=== PATIENT | female | born 1965 | race Caucasian/White ===

== ENCOUNTER 2021-08-29 09:48 | Emergency (ER) | payer OTHER, SELFPAY ==
[2021-08-29 09:54] VITALS: BP 127/77; PULSE 65; RESP 14; TEMP 36.5; O2SAT 99
--- NOTE | 2021-08-29 10:24 | ED.URI ---
HPI - URI/Sore Throat General Chief Complaint: Upper Respiratory Infection Stated Complaint: sinus issues Time Seen by Provider: 08/29/21 10:25 Source: patient and family Mode of arrival: ambulatory History of Present Illness HPI Narrative: Patient presents with a 2-day history of sinus congestion and occasional cough. No shortness of breath and no chest pain. Patient states she does have Flonase at home but does not use it on a routine basis. - Related Data Allergies Allergy/AdvReac Type Severity Reaction Status Date / Time No Known Allergies Allergy Verified 08/29/21 09:59 Review of Systems Review of Systems: CONSTITUTIONAL: Denies chills, or sweats. Reports fever and generalized body aches EYES: Denies visual changes, redness, or discharge. ENT: Denies otalgia. Reports nasal congestion runny nose and sore throat CARDIOVASCULAR: Denies chest pain, palpitations, or edema. RESPIRATORY: Denies dyspnea. Reports occasional cough GASTROINTESTINAL: Denies abdominal pain, nausea, vomiting, or diarrhea. GENITOURINARY: Denies dysuria or hematuria. SKIN: Denies rash or itching. MUSCULOSKELETAL: Denies back pain, joint pain, or myalgia. Reports generalized body aches NEUROLOGIC: Denies headache, numbness, or weakness. PSYCHIATRIC: Denies anxiety or depression. Allergic/Immunologic: Comments: At time of signature, agree with nursing past medical, surgical, social and family history. There is no relevant family history pertinent to the presenting complaint [facility] Past Medical History Medical History (Updated 08/29/21 @ 10:33 by JONATHAN Lira) Anemia Osteoarthritis Surgical History Surgical History (Updated 08/21/19 @ 16:27 by Cuca Torres NP) Gastric bypass status for obesity H/O tubal ligation History of tonsillectomy and adenoidectomy Social History Social History (Updated 08/21/19 @ 16:27 by Cuca Torres NP) Smoking status: Never smoker Gender identity (if verbalized by the patient): Female Exam Narrative: The patient is a well-developed, well-nourished in no acute distress. SKIN: Skin is warm and dry without erythema, swelling or exudate. There is good turgor. No tenting. HEAD: Atraumatic. Normocephalic. No temporal or scalp tenderness. EYES: Moist and bright. Sclera and conjunctivae normal. No discharge. PERRLA. Extraocular motions intact. Gross visual acuity intact. EARS: Pinna is normal shape and contour. Clear external auditory canals. TM pearly garcia with good cone of light, no erythema or suppuration. Bilateral cerumen noted no gross hearing deficit. NOSE: pink, moist mucosa with good air movement. Clear rhinorrhea without nasal flaring. Septum midline. Mouth: moist mucous membranes. THROAT; mild erythema noted to posterior oropharynx with moderate postnasal drainage. Without exudate or ulceration.. Uvula midline. Normal movement of soft palate. NECK: Supple and nontender with full range of motion without discomfort. No meningeal signs. LUNGS: Equal and bilateral breath sounds without wheezes, rales or rhonchi. CHEST: The chest wall is without retractions or use of accessory muscles. HEART: Has a regular rate and rhythm without murmur, gallops, click or rub. ABDOMEN: Soft, nontender with positive active bowel sounds. No rebound tenderness. EXTREMITIES: Without cyanosis, clubbing or edema. Equal 2+ distal pulses and 2 second capillary refill noted. NEUROLOGIC: alert, active, . The patient moves all extremities with normal muscle strength. Normal muscle tone is noted. Normal coordination is noted. NO focal neurological findings noted. Course Course Level of Care: Express Care Visit Vital Signs Vital signs: Vital Signs Temperature 36.5 C 08/29/21 09:54 Pulse Rate 65 08/29/21 09:54 Respiratory Rate 14 08/29/21 09:54 Blood Pressure 127/77 08/29/21 09:54 Pulse Oximetry 99 08/29/21 09:54 Temperature 36.5 C 08/29/21 09:54 Pulse Rate 65 08/29/21 09:54 Respirator
== END 2021-08-29 10:46 | disposition home or self-care (01) ==
PROVIDERS: Emergency Provider Nurse Practitioner Family
DX: J06.9 Acute upper respiratory infection, unspecified (principal); B34.9 Viral infection, unspecified; Z20.822 Contact with and (suspected) exposure to COVID-19; D64.9 Anemia, unspecified; M19.90 Unspecified osteoarthritis, unspecified site
CPT/HCPCS: 99213; G0463

== ENCOUNTER 2023-02-09 13:11 | Outpatient (CLI) | payer OTHER, SELFPAY ==
--- NOTE | ~2023-02-09 | XR_ITS ---
EXAM: XR lumbar spine 2-3V DATE: 02/09/2023 13:48 HISTORY: M15.9 - Polyosteoarthritis, unspecified . COMPARISON: None available. FINDINGS: Cholecystectomy and tubal ligation clips 5 nonrib-bearing lumbar-type vertebral bodies. Ped icles intact. Normal vertebral body alignment. Severe disc space narrowing, moderate osteophytosis, a nd vacuum phenomenon at L5-S1. Moderate disc space narrowing at L4-5. Mild disc space narrowing and m arginal osteophytosis at the remaining lumbar levels. Moderate multilevel mid and lower lumbar facet arthropathy with interspinous narrowing. No fracture or dislocation. IMPRESSION: Multilevel lumbar degenerative disc disease, severe at L5-S1. Multilevel moderate mid and lower lumbar facet arthropathy. Reviewed, dictated and finalized at location K. IMPRESSION: Multilevel lumbar degenerative disc disease, severe at L5-S1. Multi level moderate mid and lower lumbar facet arthropathy.
--- NOTE | ~2023-02-09 | XR_ITS ---
EXAM: XR hand BI arthritis min 3V DATE: 02/09/2023 13:48 HISTORY: M15.9 - Polyosteoarthritis, unspecified . COMPARISON: None available. FINDINGS: Decreased mineralization. Wire and pin fusion of the second and fourth PIP joints, with no radiographic evidence of hardware-related complication. No fracture or dislocation. No lytic or abner tic lesion. Degenerative changes noted in most of the joints of the fingers and hands, with most prog ressive change in the PIP and DIP joints of the fingers and interphalangeal joints of the thumbs. No erosion or periosteal change. Soft tissues within normal limits. IMPRESSION: Osteopenia. Moderate polyarticular osteoarthritis of the hands and wrists. Reviewed, dictated and finalized at location K.
--- NOTE | ~2023-02-09 | XR_ITS ---
EXAM: XR foot LT standing 2V, XR foot RT standing 2V DATE: 02/09/2023 13:48 HISTORY: M15.9 - Polyosteoarthritis, unspecified . COMPARISON: None available. FINDINGS: Decreased mineralization. No fracture or dislocation. No lytic or blastic lesion. Mild froyaln ateral hallux valgus, slightly worse on the right. Mild degenerative change in the bilateral first MT P joints. Mild bilateral Achilles and moderate bilateral plantar enthesopathy. No erosion or perioste al change. Soft tissues within normal limits. IMPRESSION: Osteopenia. Mild bilateral hallux valgus and first MTP joint osteoarthritis. Bilateral Ac hilles and plantar enthesopathy. Reviewed, dictated and finalized at location K. IMPRESSION: Osteopenia. Mild bilateral hallux valgus and first MTP joint osteoa rthritis. Bilateral Achilles and plantar enthesopathy.
--- NOTE | ~2023-02-09 | XR_ITS ---
EXAM: XR sacroiliac joints min 3V DATE: 02/09/2023 13:48 HISTORY: M15.9 - Polyosteoarthritis, unspecified . COMPARISON: None available. FINDINGS: Normal mineralization. No fracture or dislocation. No lytic or blastic lesion. Mild lumbar degenerative disc disease. Tubal ligation clips. Pelvic phleboliths. Mild degenerative changes in th e bilateral SI joints, pubic symphysis, and bilateral hips. No erosion or periosteal change. Soft tis sues within normal limits. IMPRESSION: Mild osteoarthritic arthritis of the bilateral SI joints and bilateral hips. Mild osteiti s pubis. Reviewed, dictated and finalized at location K. IMPRESSION: Mild osteoarthritic arthritis of the bilateral SI joints and bilate ral hips. Mild osteitis pubis.
== END 2023-02-09 13:12 | disposition home or self-care (01) ==
PROVIDERS: PCP Internal Medicine; Visit Provider Internal Medicine
DX: M32.9 Systemic lupus erythematosus, unspecified (principal); Z71.89 Other specified counseling; Z79.899 Other long term (current) drug therapy; M51.36 Other intervertebral disc degeneration, lumbar region; M51.37 Other intervertebral disc degeneration, lumbosacral region; M53.3 Sacrococcygeal disorders, not elsewhere classified; M85.871 Other specified disorders of bone density and structure, right ankle and foot; M85.872 Other specified disorders of bone density and structure, left ankle and foot; M19.071 Primary osteoarthritis, right ankle and foot; M19.072 Primary osteoarthritis, left ankle and foot; M85.841 Other specified disorders of bone density and structure, right hand; M85.842 Other specified disorders of bone density and structure, left hand; M19.041 Primary osteoarthritis, right hand; M19.042 Primary osteoarthritis, left hand; M19.031 Primary osteoarthritis, right wrist; M19.032 Primary osteoarthritis, left wrist
CPT/HCPCS: 72100; 72202; 73130; 73620

== ENCOUNTER 2024-07-15 15:52 | Emergency (ER) | payer OTHER, SELFPAY ==
[2024-07-15 16:12] VITALS: BP 128/70; PULSE 83; RESP 16; TEMP 36.7; O2SAT 99
--- NOTE | 2024-07-15 16:21 | ED.URI ---
HPI - URI/Sore Throat General Chief Complaint: Upper Respiratory Infection Stated Complaint: Sinus Problem/Sore Throat Time Seen by Provider: 07/15/24 16:21 Source: patient, RN notes reviewed and old records reviewed Mode of arrival: ambulatory Limitations: no limitations History of Present Illness HPI Narrative: 58-year-old female to Express Care with complaint of bilateral ear fullness, sinus congestion, hot and cold flashes, sore throat for 1 week. Patient has attempted to treat at home with a variety of jikg-iai-rtgcbve medications with little relief. Patient able to tolerate fluids by mouth. Patient denies shortness of breath, chest pain, difficulty swallowing, allergies, pertinent medical history. Patient resting comfortably in exam room in no acute distress. Respirations even and nonlabored. Patient able to speak in complete sentences without difficulty. Related Data Home Medications Medication Instructions Recorded Confirmed celecoxib 100 mg capsule mg 07/15/24 tramadol 50 mg tablet mg 07/15/24 trazodone 50 mg tablet mg 07/15/24 Allergies Allergy/AdvReac Type Severity Reaction Status Date / Time No Known Allergies Allergy Verified 11/07/23 10:28 Review of Systems Review of Systems: All systems reviewed & are unremarkable except as noted in HPI and below Constitutional: Constitutional: Reports as per HPI, Reports chills and Reports excessive sweating Eyes: Eyes: Reports no additional eye complaints ENT: Reports as per HPI, Reports otalgia ( Bilateral fullness), Reports nasal congestion, Reports sinus pressure and Reports sore throat Cardiovascular: Cardiovascular: Reports no additional cardiovascular complaints, Denies chest pain and Denies dyspnea Respiratory: Respiratory: Reports no additional respiratory complaints, Denies cough and Denies dyspnea Musculoskeletal: Musculoskeletal: Reports no additional musculoskeletal complaints Neurologic: Reports system reviewed and no additional complaints, except as documented Psychiatric: Psychiatric: Reports no additional psychiatric complaints [facility] Past Medical History Medical History Anemia Generalized osteoarthritis of multiple sites Lupus (systemic lupus erythematosus) Osteoarthritis Vitamin D deficiency Surgical History Surgical History Gastric bypass status for obesity H/O tubal ligation History of tonsillectomy and adenoidectomy Social History Social History Smoking status: Never smoker Alcohol intake: never Substance use: never Substance use type: does not use Lack of Transportation: No Lack of Food: Never True Current Housing: I Have Housing Concerned About Future Housing: No Difficulty Paying Gas/Electric Bills: No Difficulty Paying for Meds: No Currently Unemployed: No Education: Decline to Answer Difficulty w/ Childcare or Family Care: No Living arrangements: with family Gender identity (if verbalized by the patient): Female Comments At the time of my signature, I reviewed and agree with the nursing past medical, surgical, social, and family history. There is no relevant family history pertinent to the patient complaint. Exam Const: General: cooperative, no acute distress, well developed, alert, ill appearing acutely, tired appearing, uncomfortable, well groomed and well nourished Nutritional Appearance: well nourished Orientation/consciousness: patient oriented x3 Limitations: no limitations HENMT: Head: normal to inspection Ears: external ears normal and TM abnormal with fluid behind the TM bilateral Face/Nose/Sinus: Normal external nose present, Normal nares present, No erythema, No edema and sinus tenderness Face and sinus: normal facial exam, no erythema and no edema Mouth: Yes Normal oral and palatal mucosa present Throat: posterior oropharynx abnormal erythema and postnasal drainage Eyes: General: appearance normal, both eyes and all related structures Neck: Neck: normal visual inspection, full ROM and no meningeal signs Lymphatic: no lymphadenopathy noted and no lymphedema noted Chest: Chest palpation & inspection: normal inspection of the chest Resp: Effort & Inspection: normal respiratory effort and able to speak in complete sentences Auscultation: clear to auscultation bilaterally Cardio: Jugular venous distension: no JVD Rate: regular rate Rhythm: regular rhythm Back/Spine/Pelvis: Cervical Spine: cervical ROM normal Skin: General skin exam: normal color, no rashes or lesions noted and turgor normal Neuro: General: patient oriented x3, gait normal, moves all extremities and no meningeal signs Speech: normal speech Gait exam (Neuro): Normal gait present Extrem: General: normal to inspection, full ROM and capillary refill normal Psych: Appearance: grossly normal and well kempt Course Course Emergency Course: Some parts of this dictation were generated by voice recognition software and may contain typographical and/or grammatical inaccuracies. Level of Care: Express Care Visit Vital Signs Vital signs: Vital Signs Temperature 36.7 C 07/15/24 16:12 Pulse Rate 83 07/15/24 16:12 Respiratory Rate 16 07/15/24 16:12 Blood Pressure 128/70 07/15/24 16:12 Pulse Oximetry 99 07/15/24 16:12 Oxygen Delivery Room Air 07/15/24 16:12 Temperature 36.7 C 07/15/24 16:12 Pulse Rate 83 07/15/24 16:12 Respiratory Rate 16 07/15/24 16:12 Blood Pressure 128/70 07/15/24 16:12 Pulse Oximetry 99 07/15/24 16:12 Oxygen Delivery Room Air 07/15/24 16:12 reviewed MDM - URI/Sore Throat MDM Narrative Medical decision making narrative: 58-year-old female to Express Care with complaint of bilateral ear fullness, sinus congestion, hot and cold flashes, sore throat for 1 week. Patient has attempted to treat at home with a variety of aabs-gfa-feuafpe medications with little relief. Patient able to tolerate fluids by mouth. Patient denies shortness of breath, chest pain, difficulty swallowing, allergies, pertinent medical history. Patient resting comfortably in exam room in no acute distress. Respirations even and nonlabored. Patient able to speak in complete sentences without difficulty. on exam, bilateral TMs with fluid, posterior oropharynx erythematous with postnasal drainage. Sinus tenderness. Patient is sitting comfortably in exam room nontoxic in appearance. Patient appropriate for outpatient treatment and follow-up. Discharge instructions reviewed with patient, as well as provided in writing per nursing staff. The instructions also include specific and strict return/GO TO THE ER as well as f/u information. All questions have been answered, and the patient deny any further questions with discharge and discharge plan. Some parts of this dictation were generated by voice recognition software and may contain typographical and/or grammatical inaccuracies. Differential Diagnosis Differential diagnosis: Likely upper respiratory infection, croup, otitis media, sinusitis, viral infection, bronchitis, influenza and pharyngitis Discharge Plan Discharge Clinical Impression: Sinusitis Patient Disposition: Home, Self-Care Condition: Stable Instructions: Sinusitis (ED) Additional Instructions: please finish entire course of antibiotic treatment. Please take your steroid in the morning -Antihistamine medication such as Benadryl at night and Zyrtec/Claritin/Chanel during the day can help improve symptoms. -Use Flonase twice a day for 5 days then daily to help reduce the inflammation and dry up your sinuses. - Be sure to drink plenty of water; it is important to drink 8 to 10 glasses of water per day. Water is a natural decongestant -Using a vaporizer or humidifier at night will also help thin secretions and help with coughing up phlegm. -Follow up with primary care provider in 2-3 days if condition is not improving; or seek ER visit if you have trouble breathing, cannot drink enough fluids, have muffled voice, difficulty opening your mouth, or severe swelling. Prescriptions: New prednisone 20 mg tablet See Rx Instructions .ROUTE .COMPLEX Qty: 9 0RF Rx Instructions: Take 40mg x3 days, 20mg x3 days amoxicillin-pot clavulanate 875-125 mg tablet 1 tablet PO Q12H 7 Days Qty: 14 0RF No Action trazodone 50 mg tablet tramadol 50 mg tablet celecoxib 100 mg capsule hydroxychloroquine 200 mg tablet See Rx Instructions .ROUTE .COMPLEX Qty: 180 1RF Dose Instruction: TAKE 2 TABLETS BY MOUTH EVERY DAY Rx Instructions: TAKE 2 TABLETS BY MOUTH EVERY DAY leflunomide 20 mg tablet 20 mg PO DAILY Qty: 30 2RF duloxetine 60 mg capsule,delayed release(DR/EC) See Rx Instructions .ROUTE .COMPLEX Qty: 180 1RF Dose Instruction: TAKE 1 CAPSULE BY MOUTH TWICE A DAY Rx Instructions: TAKE 1 CAPSULE BY MOUTH TWICE A DAY Follow-up/Referrals: Jaison,MD Carol [Primary Care Provider] -
== END 2024-07-15 16:42 | disposition home or self-care (01) ==
PROVIDERS: Emergency Provider Nurse Practitioner Family; PCP Internal Medicine
DX: J32.9 Chronic sinusitis, unspecified (principal); Z79.891 Long term (current) use of opiate analgesic; Z79.899 Other long term (current) drug therapy
CPT/HCPCS: 99213; G0463

== ENCOUNTER 2024-07-30 15:10 | Emergency (ER) | payer OTHER, SELFPAY ==
[2024-07-30 15:14] VITALS: BP 143/86; PULSE 94; RESP 18; TEMP 36.3; O2SAT 97
--- NOTE | 2024-07-30 15:24 | ED_ITS ---
HPI - URI/Sore Throat General Chief Complaint: Upper Respiratory Infection Stated Complaint: sinus issues Time Seen by Provider: 07/30/24 15:25 Source: patient and RN notes reviewed Mode of arrival: ambulatory Limitations: no limitations History of Present Illness HPI Narrative: 58-year-old female presents with concern for chronic sinus symptoms. Reports she was seen 2 weeks ago for this same symptoms here was given Augmentin and prednisone which she took without relief. She reports she has chronic sinus she has issues ?nothing helps?. She denies fever, aches, chills, sweats. MD elicited complaint: rhinorrhea and nasal congestion Related Data Allergies Allergy/AdvReac Type Severity Reaction Status Date / Time No Known Allergies Allergy Verified 11/07/23 10:28 Review of Systems Review of Systems: CONSTITUTIONAL: Denies malaise, chills, sweats, or fever. EYES: Denies visual changes, redness, or discharge. ENT: Reports rhinorrhea, congestion, sinus pain CARDIOVASCULAR: Denies chest pain, palpitations, or edema. RESPIRATORY: Denies cough. Denies dyspnea. GASTROINTESTINAL: Denies abdominal pain, nausea, vomiting, diarrhea SKIN: Denies rash or itching. MUSCULOSKELETAL: Denies myalgia. NEUROLOGIC: Denies headache. All systems reviewed & are unremarkable except as noted in HPI and below PMFSH Past Medical History Medical History Anemia Generalized osteoarthritis of multiple sites Lupus (systemic lupus erythematosus) Osteoarthritis Vitamin D deficiency Surgical History Surgical History Gastric bypass status for obesity H/O tubal ligation History of tonsillectomy and adenoidectomy Social History Social History Smoking status: Never smoker Alcohol intake: never Substance use: never Substance use type: does not use Lack of Transportation: No Lack of Food: Never True Current Housing: I Have Housing Concerned About Future Housing: No Difficulty Paying Gas/Electric Bills: No Difficulty Paying for Meds: No Currently Unemployed: No Education: Decline to Answer Difficulty w/ Childcare or Family Care: No Living arrangements: with family Gender identity (if verbalized by the patient): Female Comments At time of signature, agree with nursing past medical, surgical, social and family history. There is no relevant family history pertinent to the presenting complaint Exam Narrative: GENERAL: Well-appearing, well-nourished, and in no acute distress. HEAD: Normocephalic EYES: PERRLA, conjunctivae clear ENT: Nares clear, turbinates pink. Mucous membranes moist. TM pearly bustamante with dull light reflex bilaterally; no tragal tenderness. Oropharynx not erythematous without lesions. Tonsils not enlarged and without exudate, no drooling, no hoarseness, no trismus, uvula midline. NECK: Supple. No lymphadenopathy CHEST: Clear to auscultation, breath sounds equal. No wheezing, rhonchi, rales, or stridor. No respiratory distress, speaks in full sentences. HEART: Regular rate and rhythm. No murmur heard. SKIN: Warm, dry, no rash. NEURO: Alert and oriented x3. PSYCH: Normal mood and affect Course Course Emergency Course: Patient is aware of diagnosis, understands and agrees to treatment plan. Anticipatory guidance given. Patient agrees to follow-up as directed and is aware of reasons to seek care at the emergency department. Portions of this record may have been created with voice recognition software Level of Care: Express Care Visit Vital Signs Vital signs: Vital Signs Temperature 97.3 F L 07/30/24 15:14 Pulse Rate 94 07/30/24 15:14 Respiratory Rate 18 07/30/24 15:14 Blood Pressure 143/86 H 07/30/24 15:14 Pulse Oximetry 97 07/30/24 15:14 Oxygen Delivery Room Air 07/30/24 15:14 Temperature 97.3 F L 07/30/24 15:14 Pulse Rate 94 07/30/24 15:14 Respiratory Rate 18 07/30/24 15:14 Blood Pressure 143/86 H 07/30/24 15:14 Pulse Oximetry 97 07/30/24 15:14 Oxygen Delivery Room Air 07/30/24 15:14 Reviewed. MDM - URI/Sore Throat MDM Narrative Medical decision making narrative: Differential diagnosis considered: Rodriguez virus, strep pharyngitis, allergic rhinitis, upper respiratory tract infection, sinusitis, rhinosinusitis, nasopharyngitis. viral pharyngitis, otitis media, otitis externa, pneumonia, bronchitis, viral cough syndrome, viral syndrome, and influenza. Exam findings show no acute concerns or changes; patient is non-toxic appearing and is in no distress. Patient is appropriate for outpatient treatment and follow-up. Lab Data Attestation: I reviewed the patient's lab results. Critical Care Time Critical Care Time Critical Care Time: No Discharge Plan Discharge Clinical Impression: Chronic sinusitis Patient Disposition: Home, Self-Care Condition: Stable Instructions: Sinusitis (ED) Additional Instructions: Symptomatic treatment of a sinus infection aims to relieve symptoms. These treatments do not shorten the duration of illness. Nonprescription pain medications, such as acetaminophen (eg, Tylenol) or ibuprofen (eg, Motrin, Advil), are recommended for pain. Flushing the nose and sinuses with a saline solution several times per day has been proven to decrease pain associated with congestion and shorten the duration of symptoms. Nasal steroids (such as Flonase, 2 sprays in each nostril daily) can help to reduce swelling inside the nose, usually within two to three days. These drugs have few side effects and relieve symptoms in most people. Oral decongestants (pseudoephedrine and phenylephrine) may be helpful if you have associated symptoms of ear pain or fullness. Nasal decongestant sprays, including oxymetazoline (Afrin) and phenylephrine (Basil-Synephrine), can be used to temporarily treat congestion. However, these sprays should not be used for more than two to three days due to the risk of rebound congestion (when the nose becomes congested constantly unless the medication is used repeatedly), possible addiction, and long-term consequences of frequent use, including persistent nasal dryness and crusting, which is very difficult to treat once it has developed. Medications to thin secretions (such as guaifenesin) may help to clear mucus. Please follow-up with your ENT your primary care doctor. If you cannot follow- up with your primary care doctor please go to the ED for any urgent issues. If you have any worsening of symptoms or any other concerns please go to the ED immediately. Prescriptions: New cetirizine-pseudoephedrine [Zyrtec-D] 5-120 mg tablet extended release 12 hr 1 tablet PO Q12H PRN (Reason: nasal congestion) Qty: 12 0RF fluticasone propionate [Flonase Allergy Relief] 50 mcg/actuation spray,suspension 2 spray NASAL DAILY 14 Days Qty: 15.8 0RF Rx Instructions: administer into each nostril Follow-up/Referrals: Antwan Arredondo MD [Physician] - Jaison,MD Carol [Primary Care Provider] - Time of Disposition: 15:33
== END 2024-07-30 15:38 | disposition home or self-care (01) ==
PROVIDERS: Emergency Provider Nurse Practitioner; PCP Internal Medicine
DX: J32.9 Chronic sinusitis, unspecified (principal); M32.9 Systemic lupus erythematosus, unspecified; M15.9 Polyosteoarthritis, unspecified; Z98.84 Bariatric surgery status
CPT/HCPCS: 99213; G0463